=== PATIENT | male | born 1960 | race Caucasian/White ===

== ENCOUNTER → 2024-05-14 08:48 | Outpatient (BNVA) | payer MEDICARE, SELFPAY | PROVIDERS: Visit Provider Nurse Practitioner Family | DX: D22.61 Melanocytic nevi of right upper limb, including shoulder (principal); L57.8 Other skin changes due to chronic exposure to nonionizing radiation; L81.4 Other melanin hyperpigmentation; D48.5 Neoplasm of uncertain behavior of skin | CPT/HCPCS: 11102; 99203 ==

== ENCOUNTER → 2024-06-11 07:53 | Outpatient (BNVA) | payer MEDICARE, SELFPAY | PROVIDERS: Visit Provider Dermatology | DX: C44.319 Basal cell carcinoma of skin of other parts of face (principal); C44.311 Basal cell carcinoma of skin of nose | CPT/HCPCS: 13132; 17311 ==

== ENCOUNTER → 2024-06-22 10:33 | Outpatient (BNVA) | payer MEDICARE, SELFPAY | PROVIDERS: Visit Provider Dermatology | DX: Z08 Encounter for follow-up examination after completed treatment for malignant neoplasm (principal); Z85.828 Personal history of other malignant neoplasm of skin | CPT/HCPCS: 99212 ==

== ENCOUNTER → 2024-07-13 11:00 | Outpatient (BNVA) | payer MEDICARE, SELFPAY | PROVIDERS: Visit Provider Dermatology | DX: Z48.817 Encounter for surgical aftercare following surgery on the skin and subcutaneous tissue (principal); Z85.828 Personal history of other malignant neoplasm of skin | CPT/HCPCS: 99213 ==

== ENCOUNTER 2024-08-15 12:28 | Emergency (ER) | payer MEDICARE, SELFPAY ==
[2024-08-15 12:31] VITALS: BP 143/78; PULSE 58; RESP 16; TEMP 36.6; O2SAT 94; BMI 41.3
--- NOTE | 2024-08-15 12:42 | ECG_ITS ---
[employer] Test Date: 2024-08-15 Pat Name: Rey Nath Department: Room: Gender: Male [employer]: : 1960 Requested By: Bruce Sanchez Order Number: [id number] [place] MD: Nagi Garrison M.D. Measurements Intervals [place] Rate: 58 P: 60 LA: 217 QRS: -53 QRSD: 135 T: -64 QT: 474 QTc: 469 Interpretive Statements SINUS BRADYCARDIA WITH FIRST DEGREE AV BLOCK INTRAVENTRICULAR CONDUCTION DELAY [130+ ms QRS DURATION] LEFT VENTRICULAR HYPERTROPHY AND ST-T CHANGE [VOLTAGE CRITERIA PLUS ST/T ABNORMALITY] POSSIBLE ANTERIOR MYOCARDIAL INFARCTION , OF INDETERMINATE AGE [30 ms Q WAVE IN V3/V4, OR R < 0.2 mV IN V4] No previous ECG available for comparison Electronically Signed On 08-15-2024 18:11:38 CDT by Nagi Garrison M.D. [id number]
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
== END 2024-08-15 15:00 | disposition home or self-care (01) ==
PROVIDERS: Emergency Provider Emergency Medicine
DX: S09.8XXA Other specified injuries of head, initial encounter (principal); S00.83XA Contusion of other part of head, initial encounter; Z79.02 Long term (current) use of antithrombotics/antiplatelets; Z79.84 Long term (current) use of oral hypoglycemic drugs; X58.XXXA Exposure to other specified factors, initial encounter; S29.9XXA Unspecified injury of thorax, initial encounter
CPT/HCPCS: 70450; 71045; 93005; 99284

== ENCOUNTER 2024-10-05 14:13 | Emergency (ER) | payer MEDICARE, SELFPAY ==
--- NOTE | 2024-10-05 14:16 | XRR_ITS ---
PROCEDURE INFORMATION: Exam: XR Chest Exam date and time: 10/05/2024 2:29 PM Age: 64 years old Clinical indication: Cough; Prior surgery; Surgery date: 6+ months; Surgery type: Cabg TECHNIQUE: Imaging protocol: Radiologic exam of the chest. Views: 1 view. COMPARISON: CR XR chest 1V portable [id number] 08/15/2024 1:12 PM FINDINGS: Lungs: No focal consolidation. Similar hazy opacification in the region of the lingula. Mild bronchovascular and interstitial prominence. Pleural spaces: No large pleural effusion or pneumothorax. Heart/Mediastinum: The cardiomediastinal silhouette is stable and enlarged. Similar postsurgical changes of the mediastinum. Median sternotomy wires in place. Bones/joints: See Heart/Mediastinum finding. XR/XR chest 1V portable [id number] IMPRESSION: Similar cardiomegaly with postsurgical changes of the mediastinum from prior CABG procedure. Mild bronchovascular and interstitial prominence suggesting pulmonary edema. Hazy opacification in the lingula is again visualized which may reflect atelectasis and/or scarring. Superimposed infectious etiology is not excluded.
[2024-10-05 14:25] VITALS: BP 125/72; PULSE 76; TEMP 36.7; O2SAT 96
[2024-10-05 15:12] LABS: Influenza A NEGATIVE (Negative); Influenza B NEGATIVE (Negative); Respiratory Syncytial Virus Ce NEGATIVE (Negative); SARS-CoV-2 PCR NEGATIVE (Negative)
--- NOTE | 2024-10-05 15:22 | W.ED.URI ---
HPI - URI/Sore Throat General: Chief Complaint: Upper Respiratory Infection Stated Complaint: congestion, KOEHLER, cough, aches Time Seen by Provider: 10/05/24 14:40 History of Present Illness: 64 yo male patient presents to ER with c/o congestion, cough and body aches x 10 days. Pt states he just isnt getting any better. Pt c/o SOB when he coughs. Pt denies fever but c/o generalized weakness. Pt denies chest pain but states he gets sore from coughing so much. Related Data Home Medications ?Medication ?Instructions ?Recorded ?Confirmed allopurinol 300 mg tablet 300 mg PO DAILY 08/15/24 08/15/24 amlodipine 10 mg tablet 10 mg PO DAILY 08/15/24 08/15/24 atorvastatin 40 mg tablet 40 mg PO QPM 08/15/24 08/15/24 clopidogrel 75 mg tablet 75 mg PO DAILY 08/15/24 08/15/24 empagliflozin 10 mg tablet 10 mg PO DAILY 08/15/24 08/15/24 (Jardiance) escitalopram oxalate 5 mg tablet 5 mg PO DAILY 08/15/24 08/15/24 hydrochlorothiazide 25 mg tablet 25 mg PO DAILY 08/15/24 08/15/24 isosorbide mononitrate 30 mg 15 mg PO DAILY 08/15/24 08/15/24 tablet,extended release 24 hr lisinopril 10 mg tablet 10 mg PO DAILY 08/15/24 08/15/24 metformin 1,000 mg tablet 1,000 mg PO BID 08/15/24 08/15/24 metoprolol tartrate 100 mg tablet 100 mg PO DAILY 08/15/24 08/15/24 Previous Rx's ?Medication ?Instructions ?Recorded albuterol sulfate 90 mcg/actuation 2 inh inhalation Q8H PRN shortness 10/05/24 aerosol inhaler (Ventolin HFA) of breath or wheezing #8.5 grams doxycycline hyclate 100 mg capsule 100 mg PO BID 10 days #20 caps 10/05/24 prednisone 20 mg tablet 20 mg PO BID 5 days #10 tabs 10/05/24 Allergies Allergy/AdvReac Type Severity Reaction Status Date / Time No Known Allergies Allergy Verified 10/05/24 14:30 Review of Systems General: Reports: 10 or more systems reviewed and unremarkable except in HPI and below PFSH ED PFSH: Social History Smoking and tobacco/nicotine status: never used tobacco/nicotine Physical Exam Const: COMMON NORMALS: no acute distress, patient oriented x3, healthy appearing and well nourished GENERAL APPEARANCE: cooperative, comfortable, well kempt and well developed; not ill appearing ORIENTATION/CONSCIOUSNESS: Yes awake HENMT: COMMON NORMALS: normocephalic, atraumatic, hearing grossly normal bilaterally, external ears normal, TM's normal bilaterally, Normal external nose present, Normal nasal mucous membranes and turbinates present and moist oral mucous membranes HEAD & SCALP: normal to inspection, normocephalic and atraumatic FACE & SINUS: normal facial exam, sinuses nontender and face symmetric NOSE: Normal external nose present, Normal nares present, Normal nasal mucous membranes and turbinates present and No nasal discharge present EXTERNAL EAR: Yes external ears normal and Yes mastoids normal TYMPANIC MEMBRANE: TM's normal bilaterally MOUTH: Normal oral and palatal mucosa present, lip normal, tongue normal and Normal salivary glands and ducts present THROAT: posterior oropharynx normal, tonsils normal and uvula midline Eye: COMMON NORMALS: EOMs intact bilaterally Neck/C-Spine: COMMON NORMALS: full ROM, no lymphadenopathy, supple and no JVD Chest: COMMONS NORMALS: normal inspection of the chest and normal palpation of entire chest wall Resp: COMMON NORMALS: normal respiratory effort, No retractions, No use of accessory muscles and clear to auscultation bilaterally EFFORT & INSPECTION: Yes able to speak in complete sentences and Yes symmetric chest movement AUSCULTATION: clear to auscultation bilaterally Cardio: COMMON NORMALS: no JVD, regular rate and regular rhythm RATE: regular rate RHYTHM: regular rhythm Back/Pelvis: COMMON NORMALS: thoracic and lumbar spine normal to inspection, no thoracic nor lumbar tenderness, thoraco-lumbar ROM normal and straight leg raise negative bilaterally THORACIC SPINE/UPPER BACK: Yes normal to inspection LUMBAR SPINE/LOWER BACK: Yes normal to inspection Extremity: COMMON NORMALS: normal to inspection, full ROM and capillary refill normal GENERAL: Yes normal exam except as noted Neuro: COMMON NORMALS: patient oriented x3, CN's II-XII intact bilaterally, moves all extremities, no focal motor deficits, no sensory deficits noted, deep tendon reflexes 2+ bilaterally and gait normal Psych: COMMON NORMALS: mental status grossly normal, Normal thought process present, cooperative, normal affect, speech normal, activity/motor behavior normal, denies hallucinations, denies homicidal ideation and denies suicidal ideation APPEARANCE: Yes grossly normal and Yes well kempt ATTITUDE: Yes calm ACTIVITY/MOTOR BEHAVIOR: Yes appropriate eye contact SPEECH: Yes normal speech THOUGHT PROCESS: Normal thought process present THOUGHT CONTENT: Yes Normal thought content present ATTENTION/CONCENTRATION: Yes attention grossly intact MEMORY/COGNITION: Yes memory grossly intact INSIGHT: Good insight present (Psych) JUDGEMENT: Good judgement present (Psych) Skin: COMMON NORMALS: no rashes or lesions noted, no wounds, turgor normal, no jaundice, no petechiae and no mottling GENERAL SKIN EXAM: no rashes or lesions noted and turgor normal Course Vital Signs: Vital signs: Vital Signs Temperature 98.1 F 10/05/24 14:25 Pulse Rate 60 10/05/24 15:33 Blood Pressure 113/68 10/05/24 15:33 Pulse Oximetry 94 10/05/24 15:33 Oxygen Delivery Me thod Room Air 10/05/24 14:25 MDM - URI/Sore Throat Medical Decision Making Patient is well appearing non toxic and in no acute distress. 64 yo male patient presents to ER with c/o congestion, cough and body aches x 10 days. Pt states he just isnt getting any better. Pt c/o SOB when he coughs. Pt denies fever but c/o generalized weakness. Pt denies chest pain but states he gets sore from coughing so much. Pt lungs are CTA. there is no evidence of hypoxia or menigeal irritation. Given patients history and chest xray findings, I will go ahead and start on doxy, short course of steroids, albuterol inhaler and have patient follow up with PCP for return precautions. Pt does not have any chest pain or concerning cardiac complaitns or findings. I discussed with patient return precautions, home care and follow up. Lab Data Radiology Impressions Chest X-Ray 10/05/24 14:16 IMPRESSION: Similar cardiomegaly with postsurgical changes of the mediastinum from prior CABG procedure. Mild bronchovascular and interstitial prominence suggesting pulmonary edema. Hazy opacification in the lingula is again visualized which may reflect atelectasis and/or scarring. Superimposed infectious etiology is not excluded. Laboratory Results Influenza A (PCR) Negative (Negative) 10/05/24 14:28 Influenza Type B (PCR) Negative (Negative) 10/05/24 14:28 RSV (PCR) Negative (Negative) 10/05/24 14:28 SARS-CoV-2 (PCR) Negative (Negative) 10/05/24 14:28 All radiology interpretation(s) finalized by discharge Discharge Plan Discharge Patient Disposition: Home Clinical Impression: Upper respiratory infection Qualifiers: URI type: unspecified URI Qualified Code(s): J06.9 - Acute upper respiratory infection, unspecified Condition: Stable Prescriptions: New doxycycline hyclate 100 mg capsule 100 mg PO BID 10 Days Qty: 20 0RF prednisone 20 mg tablet 20 mg PO BID 5 Days Qty: 10 0RF albuterol sulfate [Ventolin HFA] 90 mcg/actuation HFA aerosol inhaler 2 inh inhalation Q8H PRN (Reason: shortness of breath or wheezing) Qty: 8.5 0RF No Action atorvastatin 40 mg tablet 40 mg PO QPM isosorbide mononitrate 30 mg tablet extended release 24 hr 15 mg PO DAILY metoprolol tartrate 100 mg tablet 100 mg PO DAILY clopidogrel 75 mg tablet 75 mg PO DAILY amlodipine 10 mg tablet 10 mg PO DAILY metformin 1,000 mg tablet 1,000 mg PO BID lisinopril 10 mg tablet 10 mg PO DAILY allopurinol 300 mg tablet 300 mg PO DAILY hydrochlorothiazide 25 mg tablet 25 mg PO DAILY escitalopram oxalate 5 mg tablet 5 mg PO DAILY Jardiance 10 mg tablet 10 mg PO DAILY Discharge Orders: Discharge ED (Routine); Ordered 10/05/24 Ordered By: Luciana Gann Discharge Diet: Advance as tolerated Discharge Activity: Increase activity as tolerated Patient Instructions: Pneumonia (ED), Opioid Safety, Pain Management Activity Restrictions/Additional Instructions: Take medications as prescribed Return to ER if You cough up blood. Your heart beats more than 100 beats in 1 minute. You are very tired, confused, and cannot think clearly. You have chest pain or trouble breathing. Your lips or fingernails turn noble or blue Follow up with PCP for recheck Print Language: Mohawk Coding Level of Care Code ED [employer] Machine Operator for Swapna Witt
[2024-10-05 15:33] VITALS: BP 113/68; PULSE 60; O2SAT 94
== END 2024-10-05 15:39 | disposition home or self-care (01) ==
PROVIDERS: Emergency Medicine; Emergency Provider Registered Nurse
DX: J06.9 Acute upper respiratory infection, unspecified (principal)
CPT/HCPCS: 71045; 87637; 99283

== ENCOUNTER → 2025-01-25 11:10 | Outpatient (BNVA) | payer MEDICARE, SELFPAY | PROVIDERS: Visit Provider Nurse Practitioner Family | DX: D22.61 Melanocytic nevi of right upper limb, including shoulder (principal); L57.8 Other skin changes due to chronic exposure to nonionizing radiation; L81.4 Other melanin hyperpigmentation; L21.8 Other seborrheic dermatitis; Z85.828 Personal history of other malignant neoplasm of skin; L57.0 Actinic keratosis | CPT/HCPCS: 17000; 99214 ==